=== PATIENT | male | born 1970 | race Caucasian/White ===

== ENCOUNTER 2018-10-28 08:03 | Day surgery (SDC) | payer BC ==
[~2018-10-28] VITALS: Ht 182.9 cm; Wt 95.3 kg
[~2018-10-28 08:03] MED LIST: ATOR40TA PO; CO Q10100 MG PO
--- NOTE | 2018-10-28 09:51 | NUR ---
10/28/18 0951 Katiana Patterson SIMETHECONE USED DURING PROCEDURE.
== END 2018-10-28 10:45 | disposition home or self-care (01) ==
LOC: ORSCSDS 08:03
PROVIDERS: Surgery
PROC: 3E0H8GC Introduction of Other Therapeutic Substance into Lower GI, Via Natural or Artificial Opening Endoscopic (ICD-10-PCS; principal; 2018-10-28 09:30)
PROC: 0DBL8ZX Excision of Transverse Colon, Via Natural or Artificial Opening Endoscopic, Diagnostic (ICD-10-PCS; principal; 2018-10-28 09:30)
PROC: 0DBK8ZX Excision of Ascending Colon, Via Natural or Artificial Opening Endoscopic, Diagnostic (ICD-10-PCS; principal; 2018-10-28 09:30)
DX: Z12.11 Encounter for screening for malignant neoplasm of colon (principal); D12.2 Benign neoplasm of ascending colon; D12.3 Benign neoplasm of transverse colon; Z86.010 Personal history of colon polyps; E78.5 Hyperlipidemia, unspecified; K21.9 Gastro-esophageal reflux disease without esophagitis; Z79.899 Other long term (current) drug therapy
CPT/HCPCS: 88305; J0461; J1980; J2405; J2704; J7120

== ENCOUNTER 2018-11-14 06:19 | Day surgery (SDC) | payer BC ==
[~2018-11-14] VITALS: Ht 182.9 cm; Wt 95.5 kg
--- NOTE | 2018-11-14 08:54 | NUR ---
DRESSING PT BILATERAL LEGS DRESSED WITH CURLEX, COBAN AND COMPRESSING STOCKINGS.
--- NOTE | 2018-11-14 09:23 | NUR ---
DISCHARGE PT REMAINED A&OX3 AND DENIED ANY PAIN DURING RECVERY. PT ABLE TO DRESS SELF. IV DC'D WITH ALFRED IN TACT. DR. MERA OFFICE WITH CALL WITH FOLLOW-UP APPOINTMENT. DISCHARGE PAPERWORK GONE OVER WITH PT AND SPOUSE. PT AND SPOUSE DENIED ANY QUESTIONS ON THE DISCHARGE EDUCATION GIVEN. PT WHEELED OUT BY THIS NURSE.
== END 2018-11-16 22:51 | disposition home or self-care (01) ==
LOC: MHTC 06:19
DX: I87.2 Venous insufficiency (chronic) (peripheral) (principal); Z79.899 Other long term (current) drug therapy
CPT/HCPCS: 36471; 36475; 99152; 99153; C1888; C1894; J1644; J2250; J3010; J7040

== ENCOUNTER → 2020-06-15 | Outpatient (CLI) | payer BC ==
[2020-06-17 15:42] LABS: CORONAVIRUS (COVID19) CSH-NRL Positive (Negative)
== END ==
LOC: LAB SHORT 08:58
PROVIDERS: Chiropractor
DX: U07.1 COVID-19 (principal)
CPT/HCPCS: U0003